=== PATIENT | female | born 1965 | race Caucasian/White ===

== ENCOUNTER → 2023-04-30 | Emergency (ER) | payer OTHER ==
[~2023-04-30] VITALS: Ht 162.5 cm; Wt 88.0 kg
[~2023-04-30] MED LIST: ALBUTEROL 8 GM INHALER INH PRN; AMLODIPINE BESY10 MG PO; ASPIRIN ENTERIC COATED 81 MG TAB PO ONE; ATORVASTATIN CALCIUM 80 MG TAB PO ONE; CYMBALTA20 M1 PO; FLUTICASONE PROPIONATE Nasal 16 Gm spray NAS SCH; GLIPIZIDE XL10 M1 PO; IBU800 MG PO; IOHEXOL 350 MG/ML 100 ML VIAL IV ONE; JANUVIA100 MG PO; LOSARTAN-HCTZ1 EAC1 PO; NYSTATIN CREAM15 GM T; PRAVASTATIN SOD80 MG PO; SODIUM CHLORIDE 0.9% 100 ML BAG IV ONE; TYLENOL325 M1 PO; VITAMIN D250 MCG PO; VRAYLAR1.5 MG PO
[2023-04-30 09:51] LABS: BASO % 0.3 % (0.0-1.0); EOS % 0.5 % (1.0-4.0); HEMATOCRIT 41.8 % (37.0-47.0); LYMPH # 1.6 10*3/uL (1.3-4.4); LYMPH % 21.7 % (27.0-41.0); MEAN CELL VOLUME 85.3 fl (81.0-99.0); MEAN CORPUSCULAR HGB 29.2 pg (27.0-31.0); MEAN CORPUSCULAR HGB CONC 34.2 g/dl (33.0-37.0); MEAN PLATELET VOLUME 8.8 fl (9.6-12.3); MONO # 0.5 10*3/uL (0.1-1.0); MONO % 6.5 % (3.0-9.0); NEUT # 5.3 10*3/uL (2.3-7.9); NEUT % 70.7 % (47.0-73.0); PLATELET COUNT AUTOMATED 261 10*3/uL (130-400); RED CELL DISTRI WIDTH 12.1 % (0-14.5); WHITE BLOOD COUNT 7.4 10*3/uL (4.8-10.8)
[2023-04-30 10:01] LABS: ACT PARTIAL THROMBO TIME 27.2 SECONDS (20.0-32.1)
[2023-04-30 10:13] LABS: BILIRUBIN Negative (Negative); BLOOD Trace-Intact (Negative); CLARITY Cloudy (Clear); COLOR Yellow (Yellow); GLUCOSE Negative (Negative); KETONE Trace (Negative); LEUKO ESTERASE 3+ (Negative); NITRITE Negative (Negative); PH 5.5 (4.5-8.0); SPECIFIC GRAVITY 1.015 (1.001-1.030); UROBILINOGEN 0.2 E.U./dl (0.0-1.0)
[2023-04-30 10:13] LABS: ALKALINE PHOSPHATASE 70 U/L (46-116); BUN 12 mg/dl (9-23); CHLORIDE 106 mmol/L (98-107); LIPASE 41 U/L (12-53); POTASSIUM 3.8 mmol/L (3.4-5.1); SGPT/ALT 28 U/L (5-49); TOTAL PROTEIN 7.7 gm/dL (6.0-8.0)
[2023-04-30 10:28] LABS: BACTERIA 1+; EPITHELIAL CELLS 41-50; WBC 51-100 wbc/hpf (0-5)
== END ==
LOC: ED 09:13
PROVIDERS: Emergency Medicine
DX: I63.9 Cerebral infarction, unspecified (principal); I10 Essential (primary) hypertension; E11.9 Type 2 diabetes mellitus without complications; Z90.89 Acquired absence of other organs

== ENCOUNTER 2023-05-16 00:25 | Emergency (ER) | payer OTHER ==
[~2023-05-16] VITALS: Wt 79.4 kg
[~2023-05-16 00:25] MED LIST changes: -ALBUTEROL 8 GM INHALER INH PRN; -ASPIRIN ENTERIC COATED 81 MG TAB PO ONE; -ATORVASTATIN CALCIUM 80 MG TAB PO ONE; -FLUTICASONE PROPIONATE Nasal 16 Gm spray NAS SCH; -IOHEXOL 350 MG/ML 100 ML VIAL IV ONE; -SODIUM CHLORIDE 0.9% 100 ML BAG IV ONE
== END 2023-05-16 02:33 | disposition home or self-care (01) ==
LOC: ED 00:25
DX: R20.2 Paresthesia of skin (principal); I10 Essential (primary) hypertension; E11.9 Type 2 diabetes mellitus without complications; Z90.49 Acquired absence of other specified parts of digestive tract

== ENCOUNTER 2024-04-12 05:11 | Emergency (ER) | payer OTHER ==
[~2024-04-12] VITALS: Ht 160 cm; Wt 79.4 kg
[2024-04-12 06:18] LABS: HEMATOCRIT 36.7 % (37.0-47.0); MEAN CELL VOLUME 90.4 fl (81.0-99.0); MEAN CORPUSCULAR HGB CONC 33.2 g/dl (33.0-37.0); MEAN PLATELET VOLUME 9.1 fl (9.6-12.3); PLATELET COUNT AUTOMATED 155 10*3/uL (130-400); RED BLOOD COUNT 4.06 10*6/uL (4.10-5.10); RED CELL DISTRI WIDTH 12.4 % (0-14.5); WHITE BLOOD COUNT 5.5 10*3/uL (4.8-10.8)
[2024-04-12 06:19] LABS: MANUAL DIFF REFLEX YES
[2024-04-12 06:39] LABS: BUN 23 mg/dl (9-23); CHLORIDE 105 mmol/L (98-107); ETHYL ALCOHOL < 3.0 mg/dl (<3); POTASSIUM 4.3 mmol/L (3.4-5.1)
[2024-04-12 07:15] LABS: ATYPICAL LYMPHS 1 % (0-0); TOTAL CELLS COUNTED 100 #CELLS
[2024-04-12 07:16] LABS: BURR CELLS FEW; OVALOCYTES FEW; PLATELET SUFFICIENCY NORMAL (NORMAL); POLYCHROMASIA SLIGHT
[2024-04-12] MEDS ORDERED: Midazolam Hydrochloride 5 MG/ML VIAL INH ONE (08:15)
[2024-04-12] MEDS ORDERED: LEVETIRACETAM IN NACL (ISO-OS) 100 ML IV ONE ×3 (08:30)
[2024-04-12] MEDS ORDERED: KEPPRA750 MG PO (10:21)
[2024-04-12] MEDS ORDERED: Ondansetron4 MG PO (10:48)
[2024-04-12] MEDS ORDERED: Ondansetron Hydrochloride 4 MG/2 ML VIAL IV ONE (10:50)
== END 2024-04-12 10:47 | disposition home or self-care (01) ==
LOC: ED 05:11
PROVIDERS: Internal Medicine
DX: I63.9 Cerebral infarction, unspecified (principal); R56.9 Unspecified convulsions; I10 Essential (primary) hypertension; E11.9 Type 2 diabetes mellitus without complications; Z90.49 Acquired absence of other specified parts of digestive tract

== ENCOUNTER → 2024-12-09 | Outpatient (CLI) | payer OTHER ==
[~2024-12-09] MED LIST changes: +KEPPRA750 MG PO; +Ondansetron4 MG PO
[2024-12-09 10:01] LABS: BASO # 0.0 10*3/uL (0.0-0.1); BASO % 0.4 % (0.0-1.0); EOS # 0.1 10*3/uL (0.0-0.4); EOS % 1.8 % (1.0-4.0); MEAN CELL VOLUME 87.8 fl (81.0-99.0); MEAN CORPUSCULAR HGB 29.6 pg (27.0-31.0); MEAN PLATELET VOLUME 9.0 fl (9.6-12.3); MONO # 0.6 10*3/uL (0.1-1.0); MONO % 7.1 % (3.0-9.0); NEUT # 4.8 10*3/uL (2.3-7.9); NEUT % 60.7 % (47.0-73.0); NUCLEATED RED BLOOD CELL 0.0 % (0.0-0.0); NUCLEATED RED BLOOD CELL 0.0 10*3/uL (0.0-0.0); PLATELET COUNT AUTOMATED 240 10*3/uL (130-400); RED CELL DISTRI WIDTH 12.0 % (0-14.5)
[2024-12-09 10:28] LABS: BUN 19 mg/dl (9-23); FREE T4 1.33 ng/dl (0.89-1.76); LDL CHOLESTEROL 45 mg/dL (9-159); SGPT/ALT 16 U/L (5-49)
[2024-12-09 10:29] LABS: VITAMIN D, 25-HYDROXY 39.8 ng/mL (30-100)
== END | disposition home or self-care (01) ==
LOC: LAB 09:32
PROVIDERS: ATTEND Internal Medicine
DX: E11.9 Type 2 diabetes mellitus without complications (principal); E55.9 Vitamin D deficiency, unspecified; E78.00 Pure hypercholesterolemia, unspecified; R56.9 Unspecified convulsions